=== PATIENT | female | born 1960 | race Caucasian/White ===

== ENCOUNTER → 2016-11-19 | Day surgery (SDC) | payer OTHER ==
[~2016-11-19] MED LIST: ALPRAZOLAM0.5 MG PO; AMBIEN PO; ONE DAILY MULT1 EACH PO; ZOLOFT PO
--- NOTE | ~2016-11-19 | OR ---
Unit #: [id number] #: [id number] Patient: NYDIA DIAZ [id number] [facility]. [place], [place] [address] [id number] O MR#: [id number] NAME: NYDIA DIAZ ROOM: Date of Procedure: 11/19/2016 Admission Date: 11/19/2016 Surgeon: Jl Lopez Jr., M.D. : 1960 Attending Physician: Jl Lopez Jr., M.D. Referring Physician: Jl Lopez Jr., M.D. OPERATIVE REPORT INDICATIONS FOR PROCEDURE The patient is a 56-year-old white female, who recently presented to the office complaining of intermittent abdominal pain with constipation. She had a CT scan, which revealed thickening of the cecum possibly on the basis of colitis or cecitis. It was felt she needed a colonoscopy. She has had no previous scope. PREOPERATIVE DIAGNOSES Possible colitis in the area of the cecum with progressive constipation. POSTOPERATIVE DIAGNOSIS Normal colonoscopy to the distal ilium. ANESTHESIA MAC anesthesia. PROCEDURE PERFORMED Flexible colonoscopy to the distal ileum. DESCRIPTION OF PROCEDURE The patient was positioned in Polanco position with left side down. After being given MAC anesthesia, digital rectal examination was performed, which revealed no palpable mass or tenderness. No blood or stool within the rectal ampulla. The Olympus colonoscope was advanced into the anal canal up in the rectum and retroflexed down to the area of the anorectal region. There was no evidence of any fissures. No significant internal hemorrhoids. The scope was then straightened and advanced up in the rectosigmoid, in the sigmoid and descending colon areas, around the splenic flexure and the transverse colon, around hepatic flexure and ascending colon, down in the area of the cecum. The light from the tip of the scope could be seen transilluminating through right lower quadrant abdominal wall area. The scope was advanced up the distal ileum approximately 10 to 12 inches. There was no evidence of any ileitis or inflammatory bowel disease. The scope was slowly removed. There were no tumors, polyps, cancer, or AVMs. No evidence of any colitis, diverticulosis, or diverticulitis. The caliber of the colon appeared normal throughout. The scope was removed. The patient tolerated the procedure well. FINAL IMPRESSION EXAMINATION The patient has a normal colon. The patient was discharged in satisfactory condition. Unit #: [id number] #: [id number] Patient: NYDIA DIAZ Dictated by... Jl Lopez Jr., MMeme TRUJILLO/hiren TD: 11/20/2016 03:16 JOB #: [id number] OPERATIVE REPORT Page 1 of 1 X Jl Lopez MD X PROCEDURE OPERATIVE NOTE
== END | disposition home or self-care (01) ==
LOC: COPS 11:16
DX: K59.09 Other constipation (principal); K58.9 Irritable bowel syndrome, unspecified; N39.0 Urinary tract infection, site not specified; M19.90 Unspecified osteoarthritis, unspecified site; F41.9 Anxiety disorder, unspecified; F17.210 Nicotine dependence, cigarettes, uncomplicated; Z88.2 Allergy status to sulfonamides; Z90.49 Acquired absence of other specified parts of digestive tract; Z79.899 Other long term (current) drug therapy
CPT/HCPCS: J0461